=== PATIENT | male | born 1980 | race Caucasian/White ===

== ENCOUNTER 2019-12-25 16:26 | Emergency (ER) | payer OTHER ==
[2019-12-25] MEDS ORDERED: Sodium Chloride 0.9% 1,000 ML IV ONE (17:17)
[2019-12-25] MEDS ORDERED: Aspirin 81 MG Tab.Chew PO ONE (17:17)
[2019-12-25] MEDS ORDERED: LORazepam 2 MG/ML SDV IVPUSH ONE (17:30)
--- NOTE | 2019-12-25 17:49 | CR ---
Chest: Portable view of the chest was obtained. Comparison: No previous chest imaging. Heart size and mediastinum are normal. Lungs are clear with no acute parenchymal change. Previous right shoulder surgery. No acute osseous finding is seen. Impression: 1. Previous right shoulder surgery. 2. Nothing acute is seen on portable chest x-ray. Diagnostic code #2 This report was dictated in MDT
[2019-12-25 18:01] LABS: BLOOD UREA NITROGEN,BUN 15 mg/dL (7.0-18.0); CARBON DIOXIDE,CO2 23.8 mmol/L (21.0-32.0); CHLORIDE,CL 96 mmol/L (98-107); GLUCOSE RANDOM 94 mg/dL (74-106); LIPASE 56 U/L (73-393); POTASSIUM,K 3.3 mmol/L (3.5-5.1); SODIUM,NA 134 mmol/L (136-148)
[2019-12-25 18:03] LABS: ACETAMINOPHEN <2.0 ug/mL
--- NOTE | 2019-12-25 19:24 | CT ---
Head CT Technique: Multiple axial sections through the brain were obtained. Intravenous contrast not utilized. Comparison: No prior intracranial imaging is available. Findings: Vague areas of diminished density are noted within the subcortical white matter within both frontal lobes. No other abnormal parenchymal densities are seen. No evidence of intracranial hemorrhage. No midline shift or mass-effect is seen. Bone window settings were reviewed which showed no acute findings within the visualized mastoid or paranasal sinuses. Nasal septal deviation is seen which is chronic. No acute calvarial finding is appreciated. Impression: 1. Nasal septal deviation. 2. Vague areas of diminished density within the frontal white matter on both sides. This may relate to previous trauma if patient has a history of such. If no history of trauma is present, not emergent MRI could be considered to further evaluate. 3. No acute intracranial abnormality is appreciated. Diagnostic code #3 This report was dictated in MDT
[2019-12-25] MEDS ORDERED: Iopamidol 755 Mg/ML 100 ML Bottle IVPUSH STA (19:25)
--- NOTE | 2019-12-25 19:28 | CT ---
CT chest Technique: Multiple axial sections were obtained from above the lung apices inferiorly through the lung bases. Intravenous contrast was utilized. Findings: Pulmonary arteries are well opacified. No filling defects are seen to indicate pulmonary embolism. Aorta shows no aneurysm or dissection. No pericardial thickening is seen. Visualized upper abdominal structures shows no discrete abnormality. Gynecomastia identified within both breasts. Mild dependent atelectasis is seen posteriorly within both lung bases. No acute parenchymal process is appreciated. Bone window settings were reviewed previous surgery seen within the right shoulder. No acute osseous finding is appreciated. Impression: 1. No findings of pulmonary embolism. 2. Nothing acute isseen on CT study of the chest. 3. Other findings believed to be chronic and incidental as noted above. Diagnostic code #2 This report was dictated in MDT
--- NOTE | 2019-12-25 19:46 | EDM.PDOC ---
<Leta Chang - Last Filed: 12/25/19 20:14> ED HPI GENERAL MEDICAL PROBLEM - General Chief Complaint: General Stated Complaint: FEELING ILL Time Seen by Provider: 12/25/19 17:18 - Related Data Allergies Allergy/AdvReac Type Severity Reaction Status Date / Time No Known Allergies Allergy Verified 12/25/19 17:16 Home Meds: Home Meds . [Unable to Verify Home Med List] 12/25/19 [History] Course - Vital Signs Text/Narrative:: I have also independently examined this patient. Initially he did appear to be post ictal and somewhat hypoxic although it was a poor waveform. He did have some twitching of extremities as well which she does report has been previously in the setting of a postictal period. History of seizures but none recently and had been off his anti-epileptics for a long time. He does report feeling somewhat ill recently with some body aches and there is concerned that he may have COVID or other viral illness. COVID swab however is negative. CT brain and CTA chest were checked as the patient also recently drove 18 hours from another state in 1 day and did not sleep. Patient was loaded with Keppra. Keppra will be restarted and observation in the hospital was recommended to the patient. Departure - Departure Disposition: Against Medical Advice 07 Clinical Impression: Seizure, History of epilepsy - Discharge Information Referrals: PCP,None [Primary Care Provider] - Forms: ED Department Discharge Additional Instructions: The following information is given to patients seen in the emergency department who are being discharged to home. This information is to outline your options for follow-up care. We provide all patients seen in our emergency department with a follow-up referral. The need for follow-up, as well as the timing and circumstances, are variable depending upon the specifics of your emergency department visit. If you don't have a primary care physician on staff, we will provide you with a referral. We always advise you to contact your personal physician following an emergency department visit to inform them of the circumstance of the visit and for follow-up with them and/or the need for any referrals to a consulting specialist. The emergency department will also refer you to a specialist when appropriate. This referral assures that you have the opportunity for follow-up care with a specialist. All of these measure are taken in an effort to provide you with optimal care, which includes your follow-up. Under all circumstances we always encourage you to contact your private physician who remains a resource for coordinating your care. When calling for follow-up care, please make the office aware that this follow-up is from your recent emergency room visit. If for any reason you are refused follow-up, please contact the [facility] at and asked to speak to the emergency department charge nurse. [facility] [address] [place] [id number] [facility] [address] [place] [id number] Follow up with your neurologist and primary care provider as discussed. 2. You can alternate ibuprofen and Tylenol as directed for pain and discomfort. 3. Urine to the ED as needed and as discussed. <Jana Clay - Last Filed: 12/27/19 10:09> ED HPI GENERAL MEDICAL PROBLEM - General Source of Information: Reports: Patient History Limitations: Reports: No Limitations - History of Present Illness INITIAL COMMENTS - FREE TEXT/NARRATIVE: HISTORY AND PHYSICAL: History of present illness: Patient is a 38-year-old male who presents to the ED today with concern of chest pain. Patient is initially vague about his symptoms but states that he does feel as if he is about to have a seizure. Patient states he has a history of seizures but has not been on medications for a few years as his provider had stopped these years ago as he was seizure-free for quite some time. Patient denies fever, chills, shortness of breath, or cough. Denies headache, neck stiff ness, change in vision, syncope, or near syncope. Denies nausea, vomiting, abdominal pain, diarrhea, constipation, or dysuria. Has not noted any blood in urine or stool. Patient has been eating and drinking appropriately. Review of systems: As per history of present illness and below otherwise all systems reviewed and negative. Past medical history: As per history of present illness and as reviewed below otherwise noncontributory. Surgical history: As per history of present illness and as reviewed below otherwise noncontributory. Social history: See social history for further information Family history: As per history of present illness and as reviewed below otherwise noncontributory. Physical exam: General: Patient is alert, oriented, and in no acute distress. Patient sitting comfortably on exam table. HEENT: Atraumatic, normocephalic, pupils equal and reactive bilaterally, negative for conjunctival pallor or scleral icterus, mucous membranes moist, TMs normal bilaterally, throat clear, neck supple, nontender, trachea midline. No drooling or trismus noted. No meningeal signs. No hot potato voice noted. Lungs: Clear to auscultation, breath sounds equal bilaterally, chest nontender. Heart: S1S2, regular rate and rhythm without overt murmur Abdomen: Soft, nondistended, nontender. Negative for masses or hepatosplenomegal y. Negative for costovertebral tenderness. Pelvis: Stable nontender. Genitourinary: Deferred. Rectal: Deferred. Skin: Intact, warm, dry. No lesions or rashes noted. Extremities: Atraumatic, negative for cords or calf pain. Neurovascular unremarkable. Neuro: Awake, alert, oriented. Cranial nerves II through XII unremarkable. Cerebellum unremarkable. Motor and sensory unremarkable throughout. Exam n onfocal. Notes: Dr. Chang directly involved in patient care. Shortly after arrival, patient does appear to have altered mental status and that he is repeating 129and unsure of where he is at at this time. Oxygen dropped to 80% briefly and quickly returned back to 95% with nonrebreather. He also stating that the current president is Obama. He does have a hand twitching during this episode. This does resolve after 1 minute and patient fully alert, orientated to person place and time. Oxygen maintained at 99% without oxygen. Patient does state that he does have a history of epilepsy including grand mal seizures as well as focal seizures. Patient states that this is typical of his focal seizures including the hand movement. Patient states he does not recollect this event which is also typical of his seizures. Patient also states his seizures are triggered when he is under stress. Patient does have improvement of mental status and aware of person place and time and fully able to make medical decisions for himself at this time. Admission for observation was highly recommended to patient but he declines at this time. All risks versus benefits discussed with patient and expresses understanding. Patient agreeable to signing out of the ED AMA. Patient states that he recently traveled to 15-hour [address] to [place] for work and plans on returning home tomorrow and driving another 15 hours. He is currently staying in a hotel by himself. Discussed with patient and instructed him not to drive and reasons as to why thoroughly discussed. I did call the [place] Police department and reported my concerns; report with the Police Department was filed. Diagnostics: CBC, CMP, UA, EKG, chest x-ray, urine drug screen, troponin, head CT, and CT, coronavirus Therapeutics: Ativan 1 mg IV, Keppra Prescription: None Impression: Seizure h/o epilepsy Against medical advice Plan: 1. DO NOT DRIVE. Follow up with your neurologist and primary care provider as discussed. 2. You can alternate ibuprofen and Tylenol as directed for pain and discomfort. 3. Urine to the ED as needed and as discussed. Definitive disposition and diagnosis as appropriate pending reevaluation and review of above. Chest Pain Score (Numeric/FACES): 10 Past Medical History HEENT History: Reports: None Cardiovascular History: Reports: None Respiratory History: Reports: Asthma Gastrointestinal History: Reports: None Genitourinary History: Reports: None Musculoskeletal History: Reports: None Neurological History: Reports: Seizure Psychiatric History: Reports: None Endocrine/Metabolic History: Reports: None Hematologic History: Reports: None Immunologic History: Reports: None Oncologic (Cancer) History: Reports: None Dermatologic History: Reports: None - Infectious Disease History Infectious Disease History: Reports: None - Past Surgical History Head Surgeries/Procedures: Reports: None ED ROS GENERAL - Review of Systems Review Of Systems: Comprehensive ROS is negative, except as noted in HPI. ED EXAM, GENERAL - Physical Exam Exam: See Below (see dictation) Course - Vital Signs Last Recorded V/S: Last Vital Signs Temp 97.4 F 12/25/19 20:30 Pulse 74 12/25/19 20:30 Resp 18 12/25/19 20:30 BP 116/75 12/25/19 20:30 Pulse Ox 98 12/25/19 20:30 - Orders/Labs/Meds Labs: Laboratory Tests 12/25/19 12/25/19 12/25/19 Range/Units 17:17 17:17 17:17 WBC 9.71 (4.0-11.0) K/uL RBC 5.02 (4.50-5.90) M/uL Hgb 15.7 (13.0-17.0) g/dL Hct 44.8 (38.0-50.0) % MCV 89.2 (80.0-98.0) fL MCH 31.3 (27.0-32.0) pg MCHC 35.0 (31.0-37.0) g/dL RDW Std Deviation 40.7 (28.0-62.0) fl RDW Coeff of Aliza 13 (11.0-15.0) % Plt Count 256 (150-400) K/uL MPV 9.50 (7.40-12.00) fL Neut % (Auto) 86.3 H (48.0-80.0) % Lymph % (Auto) 8.8 L (16.0-40.0) % [place] % (Auto) 4.5 (0.0-15.0) % Eos % (Auto) 0.2 (0.0-7.0) % Baso % (Auto) 0.2 (0.0-1.5) % Neut # (Auto) 8.4 H (1.4-5.7) K/uL Lymph # (Auto) 0.9 (0.6-2.4) K/uL [place] # (Auto) 0.4 (0.0-0.8) K/uL Eos # (Auto) 0.0 (0.0-0.7) K/uL Baso # (Auto) 0.0 (0.0-0.1) K/uL Nucleated RBC % 0.0 /100WBC Nucleated RBCs # 0 K/uL D-Dimer, Quantitative (0.0-0.50) mg/L FEU Sodium 134 L (136-148) mmol/L Potassium 3.3 L (3.5-5.1) mmol/L Chloride 96 L (98-107) mmol/L Carbon Dioxide 23.8 (21.0-32.0) mmol/L BUN 15 (7.0-18.0) mg/dL Creatinine 1.1 (0.8-1.3) mg/dL Est Cr Clr Drug Dosing 94.02 mL/min Estimated GFR (MDRD) > 60.0 ml/min Glucose 94 (74-106) mg/dL Calcium 9.6 (8.5-10.1) mg/dL Magnesium 2.0 (1.8-2.4) mg/dL Total Bilirubin 0.7 (0.2-1.0) mg/dL AST 27 (15-37) IU/L ALT 42 (14-63) IU/L Alkaline Phosphatase 74 (46-116) U/L Troponin I < 0.050 (0.000-0.056) ng/mL Total Protein 8.1 (6.4-8.2) g/dL Albumin 4.4 (3.4-5.0) g/dL Globulin 3.7 (2.6-4.0) g/dL Albumin/Globulin Ratio 1.2 (0.9-1.6) Lipase 56 L (73-393) U/L TSH 3rd Generation 0.25 L (0.36-3.74) uIU/mL Salicylates 0.2 (0-20) mg/dL Acetaminophen <2.0 ug/mL Ethyl Alcohol < 3.0 mg/dL COVID-19 ([facility]) (NEGATIVE) 12/25/19 12/25/19 Range/Units 17:42 17:53 WBC (4.0-11.0) K/uL RBC (4.50-5.90) M/uL Hgb (13.0-17.0) g/dL Hct (38.0-50.0) % MCV (80.0-98.0) fL MCH (27.0-32.0) pg MCHC (31.0-37.0) g/dL RDW Std Deviation (28.0-62.0) fl RDW Coeff of Aliza (11.0-15.0) % Plt Count (150-400) K/uL MPV (7.40-12.00) fL Neut % (Auto) (48.0-80.0) % Lymph % (Auto) (16.0-40.0) % [place] % (Auto) (0.0-15.0) % Eos % (Auto) (0.0-7.0) % Baso % (Auto) (0.0-1.5) % Neut # (Auto) (1.4-5.7) K/uL Lymph # (Auto) (0.6-2.4) K/uL [place] # (Auto) (0.0-0.8) K/uL Eos # (Auto) (0.0-0.7) K/uL Baso # (Auto) (0.0-0.1) K/uL Nucleated RBC % /100WBC Nucleated RBCs # K/uL D-Dimer, Quantitative 0.20 (0.0-0.50) mg/L FEU Sodium (136-148) mmol/L Potassium (3.5-5.1) mmol/L Chloride (98-107) mmol/L Carbon Dioxide (21.0-32.0) mmol/L BUN (7.0-18.0) mg/dL Creatinine (0.8-1.3) mg/dL Est Cr Clr Drug Dosing mL/min Estimated GFR (MDRD) ml/min Glucose (74-106) mg/dL Calcium (8.5-10.1) mg/dL Magnesium (1.8-2.4) mg/dL Total Bilirubin (0.2-1.0) mg/dL AST (15-37) IU/L ALT (14-63) IU/L Alkaline Phosphatase (46-116) U/L Troponin I (0.000-0.056) ng/mL Total Protein (6.4-8.2) g/dL Albumin (3.4-5.0) g/dL Globulin (2.6-4.0) g/dL Albumin/Globulin Ratio (0.9-1.6) Lipase (73-393) U/L TSH 3rd Generation (0.36-3.74) uIU/mL Salicylates (0-20) mg/dL Acetaminophen ug/mL Ethyl Alcohol mg/dL COVID-19 ([facility]) NEGATIVE (NEGATIVE) Meds: Medications Discontinued Medications Generic Name Dose Route Start Last Admin Trade Name Freq PRN Reason Stop Dose Admin Aspirin 324 mg 12/25/19 17:17 12/25/19 17:33 Aspirin PO 12/25/19 17:18 324 mg ONETIME ONE Administration Sodium Chloride 1,000 mls @ 999 mls/hr 12/25/19 17:17 12/25/19 17:33 Normal Saline IV 12/25/19 18:17 999 mls/hr BOLUS ONE Administration Levetiracetam 1,000 mg/ 110 mls @ 440 mls/hr 12/25/19 17:31 12/25/19 18:30 Dextrose/Water IV 12/25/19 17:45 440 mls/hr NOW STA Administration Iopamidol 75 ml 12/25/19 19:25 12/25/19 19:26 Isovue-370 (76%) IVPUSH 12/25/19 19:26 75 ml ONETIME STA Administration Lorazepam 1 mg 12/25/19 17:30 12/25/19 17:34 Ativan IVPUSH 12/25/19 17:31 1 mg ONETIME ONE Administration Departure - Departure Time of Disposition: 21:18 Sepsis Event Note (ED) - Evaluation Sepsis Screening Result: No Definite Risk
== END 2019-12-25 20:30 | disposition left against medical advice (07) ==
LOC: MW.ED 16:26
DX: G40.909 Epilepsy, unspecified, not intractable, without status epilepticus (principal); J45.909 Unspecified asthma, uncomplicated; Z20.828 Contact with and (suspected) exposure to other viral communicable diseases; Z53.20 Procedure and treatment not carried out because of patient's decision for unspecified reasons
CPT/HCPCS: 36415; 70450; 71045; 71275; 80053; 80307; 83690; 83735; 84443; 84484; 85025; 85379; 87635; 93005; 96361; 96374; 96375; 99285; A9270; J1953; J2060; J7030; J7060; Q9967; 99284; U0002